=== PATIENT | female | born 1940 | race American Indian/Alaskan Native ===

== ENCOUNTER 2018-02-18 09:44 | Outpatient (CLI) | payer MEDICARE ==
--- NOTE | 2018-02-18 13:16 | Mammography Report ---
Bilateral mammogram: Compared to 12/28/14. CAD study utilized. Findings: Predominance adipose tissue bilaterally. No mass or microcalcification. Focal asymmetry measuring 4 mm in diameter the fat in the posterior right breast. Normal axilla. Impression: Focal asymmetry right breast. Recommend spot compression and if necessary sonographic examination. BI-RADS CATEGORY: 0 = Needs additional imaging evaluation ACR BI-RADS MAMMOGRAPHIC CODES: 0 = Needs additional imaging evaluation; 1 = Negative; 2 = Benign; 3 = Probably benign; 4 = Suspicious; 5 = Malignant; 6 = Known biopsy-proven malignancy COMMENT: 1. Dense breast tissue, i.e., adenosis, fibrocystic changes, etc., may obscure an underlying neoplasm. 2. Approximately 10% of cancers are not detected with mammography. 3. A negative mammography report should not delay biopsy if a clinically suspicious mass is present. COMMENT: Patient follow-up letters are generated in [employer].
== END 2018-02-18 09:45 | disposition home or self-care (01) ==
LOC: MAMMO 09:44
PROVIDERS: ATTEND Internal Medicine
DX: Z12.31 Encounter for screening mammogram for malignant neoplasm of breast (principal); E11.65 Type 2 diabetes mellitus with hyperglycemia; I10 Essential (primary) hypertension; M19.90 Unspecified osteoarthritis, unspecified site
CPT/HCPCS: 77067

== ENCOUNTER 2020-03-21 12:12 | Emergency (ER) | payer MEDICARE ==
[2020-03-21] MEDS ORDERED: diphenhydrAMINE 25 MG CAP PO ONE (14:04)
[2020-03-21] MEDS ORDERED: FAMOTIDINE 20 MG TAB PO ONE (14:04)
[2020-03-21] MEDS ORDERED: dexAMETHasone 20 MG/5 ML VIAL IM ONE (14:04)
--- NOTE | 2020-03-21 14:16 | Emergency Department Report ---
ED General Adult HPI - General Chief complaint: Skin/Abscess/Foreign Body Stated complaint: EYE PAIN/LIP PAIN Time Seen by Provider: 03/21/20 13:57 Source: patient Mode of arrival: Ambulatory Limitations: No Limitations - History of Present Illness Initial comments: Patient is a 79-year-old female presents emergency room with complaints of swelling underneath the eyes began yesterday. She states yesterday when she woke up she noticed swelling to the face which improved. But she states that she still continues to have a small amount of swelling underneath the eyes. She denies any new soaps, detergents, lotions, medications, foods, anything new that she can think of. She denies any known allergies. She denies any rash or itching. She denies any vision changes, eye drainage, nausea, vomiting, diarrhea, fever, SOB, difficulty swallowing, sensation of throat closing. Has a past medical history of DM, HTN, HLD. No allergies to medications. - Related Data Previous Rx's Medication Instructions Recorded Last Taken Type Aspirin 325 mg PO QDAY #30 tablet 07/12/14 Unknown Rx Atorvastatin [Lipitor] 40 mg PO QHS #30 tablet 07/12/14 Unknown Rx Famotidine [Pepcid] 20 mg PO BID #60 07/12/14 06/26/14 09:00 Rx Insulin Detemir (Nf) [Levemir 24 units SQ HS #1 ml 07/12/14 Unknown Rx Flextouch (Nf)] NIFEdipine [NIFEdipine ER] 90 mg PO QDAY #30 tab.er.24 07/12/14 Unknown Rx carvediloL [Coreg] 25 mg PO Q12HR #60 tablet 07/12/14 Unknown Rx lisinopriL [Lisinopril] 40 mg PO QDAY #30 tablet 07/12/14 Unknown Rx Famotidine [Pepcid] 40 mg PO QHS #10 tablet 03/21/20 Unknown Rx Prednisone [predniSONE 10 mg 10 mg PO .TAPER #1 tab.ds.pk 03/21/20 Unknown Rx (6-Day Pack, 21 Tabs)] diphenhydrAMINE [Benadryl CAP] 50 mg PO Q8HR PRN #14 capsule 03/21/20 Unknown Rx Allergies Allergy/AdvReac Type Severity Reaction Status Date / Time No Known Allergies Allergy Unverified 06/26/14 20:44 ED Review of Systems ROS: Stated complaint: EYE PAIN/LIP PAIN Other details as noted in HPI Comment: All other systems reviewed and negative ED Past Medical Hx - Past Medical History Previous Medical History?: Yes Hx Hypertension: Yes Hx CVA: Yes Hx Congestive Heart Failure: No Hx Diabetes: Yes Hx Arthritis: Yes Hx COPD: No - Surgical History Hx Open Heart Surgery: No Hx Pacemaker: No - Social History Smoking Status: Never Smoker Substance Use Type: None - Medications Home Medications: Home Medications Medication Instructions Recorded Confirmed Last Taken Type Aspirin 325 mg PO QDAY #30 tablet 07/12/14 Unknown Rx Atorvastatin [Lipitor] 40 mg PO QHS #30 tablet 07/12/14 Unknown Rx Famotidine [Pepcid] 20 mg PO BID #60 07/12/14 06/26/14 06/26/14 09:00 Rx Insulin Detemir (Nf) [Levemir 24 units SQ HS #1 ml 07/12/14 Unknown Rx Flextouch (Nf)] NIFEdipine [NIFEdipine ER] 90 mg PO QDAY #30 tab.er.24 07/12/14 Unknown Rx carvediloL [Coreg] 25 mg PO Q12HR #60 tablet 07/12/14 Unknown Rx lisinopriL [Lisinopril] 40 mg PO QDAY #30 tablet 07/12/14 Unknown Rx Famotidine [Pepcid] 40 mg PO QHS #10 tablet 03/21/20 Unknown Rx Prednisone [predniSONE 10 mg 10 mg PO .TAPER #1 tab.ds.pk 03/21/20 Unknown Rx (6-Day Pack, 21 Tabs)] diphenhydrAMINE [Benadryl CAP] 50 mg PO Q8HR PRN #14 capsule 03/21/20 Unknown Rx ED Physical Exam - General Limitations: No Limitations General appearance: alert, in no apparent distress - Eye Eye exam: Present: normal appearance, PERRL, EOMI, other (mild edema present underneath the eyelid bilaterally, no erythema, no increased warmth, no conjunctival injection, no drainage ) - ENT ENT exam: Present: normal orophraynx, mucous membranes moist, other (no shanon oedema, uvula is midline, no uvular edema or deviation, no tongue edema) - Respiratory Respiratory exam: Present: normal lung sounds bilaterally. Absent: respiratory distress, wheezes, rales, rhonchi, stridor, chest wall tenderness, accessory muscle use, decreased breath sounds, prolonged expiratory - Cardiovascular Cardiovascular Exam: Present: regular rate, normal rhythm, normal heart sounds. Absent: systolic murmur, diastolic murmur, rubs, gallop - Neurological Exam Neurological exam: Present: alert, oriented X3 - Psychiatric Psychiatric exam: Present: normal affect, normal mood - Skin Skin exam: Present: warm, dry. Absent: rash ED Course Vital Signs 03/21/20 03/21/20 03/21/20 12:26 15:08 15:11 Temperature 99.3 F 98.2 F 98.2 F Pulse Rate 90 82 82 Respiratory 18 14 14 Rate Blood Pressure 155/79 142/75 Blood Pressure 142/75 [Right] O2 Sat by Pulse 98 99 99 Oximetry ED Medical Decision Making - Medical Decision Making Patient is a 79-year-old female presents emergency room with complaints of swelling underneath the eyes began yesterday. She states yesterday when she woke up she noticed swelling to the face which improved. But she states that she still continues to have a small amount of swelling underneath the eyes. She denies any new soaps, detergents, lotions, medications, foods, anything new that she can think of. She denies any known allergies. She denies any rash or itching. She denies any vision changes, eye drainage, nausea, vomiting, diarrhea, fever, SOB, difficulty swallowing, sensation of throat closing. Has a past medical history of DM, HTN, HLD. No allergies to medications. Vitals are normal. On exam: mild edema present underneath the eyelid bilaterally, no erythema, no increased warmth, no conjunctival injection, no drainage, no angioedema, uvula is midline, no uvular edema or deviation, no tongue edema, no stridor, no respiratory distress. No signs of infection. Appears to have mild allergic reaction with swelling underneath her eyes, otherwise no signs of angioedema, no signs of anaphylaxis, no signs of rash. Patient given dexamethasone, prednisone, Pepcid while in the emergency department and was observed and had no further complications. She states that she is feeling much better and ready to go home. Patient given prescription for prednisone, Pepcid, Benadryl. Advised patient to please take medication as prescribed. Increase your water intake. Follow-up with a primary care doctor. The steroids may increase your blood sugar, please monitor your blood sugar. Return to emergency room for any new or worsening symptoms. Critical care attestation.: If time is entered above; I have spent that time in minutes in the direct care of this critically ill patient, excluding procedure time. ED Disposition Clinical Impression: Eye swelling, bilateral Disposition: DC-01 TO HOME OR SELFCARE Is pt being admited?: No Does the pt Need Aspirin: No Condition: Stable Instructions: Angioedema, [id number] Additional Instructions: Please take medication as prescribed. Benadryl may cause drowsiness, please be careful while taking. Follow-up with your primary care doctor in the next couple of days for reexamination. Return to emergency room immediately for any new or worsening symptoms including but not limited to increasing facial swelling, sensation of throat closing, shortness of breath, etc. Prescriptions: Famotidine [Pepcid] 40 mg PO QHS #10 tablet diphenhydrAMINE [Benadryl CAP] 50 mg PO Q8HR PRN #14 capsule PRN Reason: swelling/rash Prednisone [predniSONE 10 mg (6-Day Pack, 21 Tabs)] 10 mg PO .TAPER #1 tab.ds.pk Referrals: PRIMARY CARE, [Primary Care Provider] - 2-3 Days Time of Disposition: 16:14 Print Language: EQUATORIAL GUINEAN
[2020-03-21 15:12] VITALS: BP 142/75
== END 2020-03-21 16:50 | disposition home or self-care (01) ==
LOC: ED 12:12
DX: H92.03 Otalgia, bilateral (principal); I10 Essential (primary) hypertension; E11.9 Type 2 diabetes mellitus without complications; M19.90 Unspecified osteoarthritis, unspecified site; Z79.82 Long term (current) use of aspirin; Z86.73 Personal history of transient ischemic attack (TIA), and cerebral infarction without residual deficits; Z79.899 Other long term (current) drug therapy
CPT/HCPCS: 96372; 99282; J1100

== ENCOUNTER 2021-04-11 13:21 | Observation (INO) | payer MEDICARE ==
[2021-04-11] MEDS ORDERED: hydrALAZINE 20 MG/1 ML INJ IV ONE (13:44)
[2021-04-11] MEDS ORDERED: FAMOTIDINE 20 MG/2 ML INJ IV ONE (13:44)
[2021-04-11] MEDS ORDERED: dexAMETHasone 20 MG/5 ML VIAL IV ONE (13:44)
[2021-04-11] MEDS ORDERED: diphenhydrAMINE 50 MG/ML VIAL IV ONE (13:44)
--- NOTE | 2021-04-11 13:55 | Emergency Department Report ---
ED Allergic Reaction HPI - General Chief complaint: Allergic Reaction Stated complaint: LIP SWELLING Time Seen by Provider: 04/11/21 13:39 Source: patient Mode of arrival: Ambulatory Limitations: No Limitations - History of Present Illness Initial Comments: Patient is a 81-year-old female presents emergency room complaints of lip swelling that began last night. She denies any known allergies. She denies any new foods, lotions, detergents, medications, antibiotics. Patient states that she does take lisinopril for her blood pressure and states that she has been on it for a long time. She did not take any blood pressure medication this morning. She denies any tongue swelling, difficulty swallowing, difficulty breathing, rash, itching. She denies ever having this in the past. Patient denies any medication allergies. - Related Data Previous Rx's Medication Instructions Recorded Last Taken Type Aspirin 325 mg PO QDAY #30 tablet 07/12/14 Unknown Rx Atorvastatin [Lipitor] 40 mg PO QHS #30 tablet 07/12/14 Unknown Rx Famotidine [Pepcid] 20 mg PO BID #60 07/12/14 06/26/14 09:00 Rx Insulin Detemir (Nf) [Levemir 24 units SQ HS #1 ml 07/12/14 Unknown Rx Flextouch (Nf)] NIFEdipine [NIFEdipine ER] 90 mg PO QDAY #30 tab.er.24 07/12/14 Unknown Rx carvediloL [Coreg] 25 mg PO Q12HR #60 tablet 07/12/14 Unknown Rx lisinopriL [Lisinopril] 40 mg PO QDAY #30 tablet 07/12/14 Unknown Rx Famotidine [Pepcid] 40 mg PO QHS #10 tablet 03/21/20 Unknown Rx Prednisone [predniSONE 10 mg 10 mg PO .TAPER #1 tab.ds.pk 03/21/20 Unknown Rx (6-Day Pack, 21 Tabs)] diphenhydrAMINE [Benadryl CAP] 50 mg PO Q8HR PRN #14 capsule 03/21/20 Unknown Rx Allergies Allergy/AdvReac Type Severity Reaction Status Date / Time No Known Allergies Allergy Verified 04/11/21 13:22 ED Review of Systems ROS: Stated complaint: LIP SWELLING Other details as noted in HPI Comment: All other systems reviewed and negative ED Past Medical Hx - Past Medical History Hx Hypertension: Yes Hx CVA: Yes Hx Congestive Heart Failure: No Hx Diabetes: Yes Hx Arthritis: Yes Hx COPD: No - Surgical History Hx Open Heart Surgery: No Hx Pacemaker: No - Social History Smoking Status: Never Smoker Substance Use Type: None - Medications Home Medications: Home Medications Medication Instructions Recorded Confirmed Last Taken Type Aspirin 325 mg PO QDAY #30 tablet 07/12/14 Unknown Rx Atorvastatin [Lipitor] 40 mg PO QHS #30 tablet 07/12/14 Unknown Rx Famotidine [Pepcid] 20 mg PO BID #60 07/12/14 06/26/14 06/26/14 09:00 Rx Insulin Detemir (Nf) [Levemir 24 units SQ HS #1 ml 07/12/14 Unknown Rx Flextouch (Nf)] NIFEdipine [NIFEdipine ER] 90 mg PO QDAY #30 tab.er.24 07/12/14 Unknown Rx carvediloL [Coreg] 25 mg PO Q12HR #60 tablet 07/12/14 Unknown Rx lisinopriL [Lisinopril] 40 mg PO QDAY #30 tablet 07/12/14 Unknown Rx Famotidine [Pepcid] 40 mg PO QHS #10 tablet 03/21/20 Unknown Rx Prednisone [predniSONE 10 mg 10 mg PO .TAPER #1 tab.ds.pk 03/21/20 Unknown Rx (6-Day Pack, 21 Tabs)] diphenhydrAMINE [Benadryl CAP] 50 mg PO Q8HR PRN #14 capsule 03/21/20 Unknown Rx ED Physical Exam - General Limitations: No Limitations General appearance: alert, in no apparent distress - Head Head exam: Present: atraumatic, normocephalic - Eye Eye exam: Present: normal appearance - ENT ENT exam: Present: mucous membranes moist, other (upper and lower lip edema, no tongue edema, uvula is midline, no uvular edema or deviation, no muffled voice, no trismus, airway is intact) - Respiratory Respiratory exam: Present: normal lung sounds bilaterally. Absent: respiratory distress, wheezes, rales, rhonchi, stridor, chest wall tenderness, accessory muscle use, decreased breath sounds, prolonged expiratory - Cardiovascular Cardiovascular Exam: Present: regular rate, normal rhythm, normal heart sounds. Absent: systolic murmur, diastolic murmur, rubs, gallop - Neurological Exam Neurological exam: Present: alert, oriented X3 - Psychiatric Psychiatric exam: Present: normal affect, normal mood - Skin Skin exam: Present: warm, dry, intact ED Course Vital Signs 04/11/21 04/11/21 04/11/21 13:35 14:31 17:14 Temperature 98.4 F Pulse Rate 88 82 Respiratory 16 19 Rate Blood Pressure 207/123 177/106 [Right] O2 Sat by Pulse 99 97 98 Oximetry 04/11/21 19:27 Temperature Pulse Rate 108 H Respiratory 18 Rate Blood Pressure 171/80 [Right] O2 Sat by Pulse 98 Oximetry - Consultations Consultation #1: 04/11/21 16:[address] Escobar, ER attending who recommends observation admission 04/11/21 16:[address] Wang, hospitalist who will evaluate patient in ER 04/11/21 17:[address] Wang, hospitalist who accepted resume care of patient, will admit to hospitalist service ED Medical Decision Making - Lab Data Result diagrams: 04/11/21 17:42 04/11/21 17:42 - Medical Decision Making Patient is a 81-year-old female presents emergency room complaints of lip swelling that began last night. She denies any known allergies. She denies any new foods, lotions, detergents, medications, antibiotics. Patient states that she does take lisinopril for her blood pressure and states that she has been on it for a long time. She did not take any blood pressure medication this morning. She denies any tongue swelling, difficulty swallowing, difficulty breathing, rash, itching. She denies ever having this in the past. Patient denies any medication allergies. Vitals with significantly elevated blood pressure, given IV hydralazine with improvement of blood pressure. On exam upper and lower lip edema, no tongue edema, uvula is midline, no uvular edema or deviation, no muffled voice, no trismus, airway is intact. Patient given IV Benadryl, Pepcid, dexamethasone. Patient was reexamined multiple times and she is resting comfortably with no further complications. Discussed case with Dr. Escobar, ER attending who recommended admission. Discussed case with Dr. Wang, hospitalist who will accept and resume care of patient, will admit to hospital service. Discussed all findings with patient who is agreeable with admission. Critical care attestation.: If time is entered above; I have spent that time in minutes in the direct care of this critically ill patient, excluding procedure time. ED Disposition Clinical Impression: Angioedema Qualifiers: Encounter type: initial encounter Qualified Code(s): T78.3XXA - Angioneurotic edema, initial encounter HTN (hypertension) Qualifiers: Hypertension type: unspecified Qualified Code(s): I10 - Essential (primary) hypertension Disposition: 02 [facility] Is pt being admited?: Yes Does the pt Need Aspirin: No Condition: Stable Time of Disposition: 17:24
[2021-04-11] MEDS ORDERED: ONDANSETRON 4 MG/2 ML INJ IV PRN (17:26)
[2021-04-11] MEDS ORDERED: ACETAMINOPHEN 325 MG TAB PO PRN (17:26)
[2021-04-11] MEDS ORDERED: HYDROmorphone 1 MG/1 ML INJ IV PRN (17:26)
[2021-04-11] MEDS ORDERED: oxyCODONE /ACETAMINOPHEN 5-325MG TAB PO PRN (17:26)
[2021-04-11] MEDS ORDERED: SODIUM CHLORIDE 0.9% 1000 ML 1,000 ML IV SCH (17:30)
[2021-04-11] MEDS ORDERED: NIFEdipine XL 30 MG TAB PO SCH (18:00)
[2021-04-11 18:02] LABS: Basophils # (Auto) 0.1 K/mm3 (0.0-0.1); Basophils % (Auto) 0.7 % (0.0-1.8); Eosinophils % (Auto) 0.3 % (0.0-4.3); Lymphocytes # (Auto) 0.9 K/mm3 (1.2-5.4); Lymphocytes % (Auto) 9.8 % (13.4-35.0); Mean Corpuscular HGB Conc 31 % (30-34); Mean Corpuscular Volume 86 fl (79-97); Monocytes # (Auto) 0.1 K/mm3 (0.0-0.8); Monocytes % (Auto) 1.1 % (0.0-7.3); Platelet Count 324 K/mm3 (140-440); Red Blood Count 5.55 M/mm3 (3.65-5.03); Red Cell Distribution Width 14.3 % (13.2-15.2)
[2021-04-11 18:14] LABS: Hematocrit 47.7 % (30.3-42.9); Hemoglobin 14.9 gm/dl (10.1-14.3)
[2021-04-11 18:23] LABS: Alanine Aminotransferase 11 units/L (7-56); Albumin 4.2 g/dL (3.9-5); Blood Urea Nitrogen 13 mg/dL (7-17); Calcium 9.7 mg/dL (8.4-10.2); Hemolysis Index 13
[2021-04-11] MEDS: hydrALAZINE 25 MG TAB PO SCH ×2 (18:24→23:11)
[2021-04-11 18:27] LABS: BUN/Creatinine Ratio 19
[2021-04-11] MEDS ORDERED: carvediloL 12.5 MG TAB PO SCH (22:00)
[2021-04-11] MEDS: methylPREDNISolone Sod Succinate 125 MG/2 ML INJ IV SCH (23:12)
[2021-04-11] MEDS: HEPARIN 5,000 UNIT/1 ML VIAL SUB-Q SCH (23:18)
[2021-04-12] MEDS: FAMOTIDINE 20 MG/2 ML INJ IV SCH ×2 (02:01→11:45)
[2021-04-12 05:30] LABS: Basophils % (Auto) 0.5 % (0.0-1.8); Eosinophils % (Auto) 0.1 % (0.0-4.3); Hematocrit 43.6 % (30.3-42.9); Hemoglobin 13.7 gm/dl (10.1-14.3); Lymphocytes # (Auto) 0.8 K/mm3 (1.2-5.4); Lymphocytes % (Auto) 10.1 % (13.4-35.0); Mean Corpuscular HGB Conc 31 % (30-34); Mean Corpuscular Volume 86 fl (79-97); Monocytes # (Auto) 0.1 K/mm3 (0.0-0.8); Monocytes % (Auto) 0.8 % (0.0-7.3); Platelet Count 321 K/mm3 (140-440); Red Blood Count 5.06 M/mm3 (3.65-5.03); Red Cell Distribution Width 14.5 % (13.2-15.2)
[2021-04-12 05:40] LABS: Blood Urea Nitrogen 16 mg/dL (7-17); Calcium 9.4 mg/dL (8.4-10.2); Hemolysis Index 4
[2021-04-12 06:00] LABS: BUN/Creatinine Ratio 23
[2021-04-12] MEDS: hydrALAZINE 25 MG TAB PO SCH (06:02)
[2021-04-12] MEDS: methylPREDNISolone Sod Succinate 125 MG/2 ML INJ IV SCH (06:02)
[2021-04-12] MEDS ORDERED: diphenhydrAMINE 50 MG CAP PO PRN (06:42)
--- NOTE | 2021-04-12 06:49 | History and Physical Report ---
History of Present Illness Date of examination: 04/11/21 Date of admission: 04/11/21 17:26 Chief complaint: Swelling of the lips since last night History of present illness: 81-year-old female with history of hypertension and insulin-dependent diabetes comes in for swelling of the lips since last night. No shortness of breath. No tongue swelling. Patient is on lisinopril for blood pressure. She has been on lisinopril for a long time. There is a first episode of swelling of the lips. No respiratory compromise. - Past Medical History --Hypertension: Yes --CVA: Yes --Diabetes: Yes --Arthritis: Yes - Surgical History --No - Social History =--Never Smoker --Substance Use Type: None - Family history --Hypertension Review of Systems ROS: Stated complaint: LIP SWELLING Other details as noted in HPI Comment: All other systems reviewed and negative Medications and Allergies Allergies Allergy/AdvReac Type Severity Reaction Status Date / Time No Known Allergies Allergy Verified 04/11/21 13:22 Home Medications Medication Instructions Recorded Confirmed Last Taken Type Aspirin 325 mg PO QDAY #30 tablet 07/12/14 Unknown Rx Atorvastatin [Lipitor] 40 mg PO QHS #30 tablet 07/12/14 Unknown Rx Famotidine [Pepcid] 20 mg PO BID #60 07/12/14 06/26/14 06/26/14 09:00 Rx Insulin Detemir (Nf) [Levemir 24 units SQ HS #1 ml 07/12/14 Unknown Rx Flextouch (Nf)] NIFEdipine [NIFEdipine ER] 90 mg PO QDAY #30 tab.er.24 07/12/14 Unknown Rx carvediloL [Coreg] 25 mg PO Q12HR #60 tablet 07/12/14 Unknown Rx lisinopriL [Lisinopril] 40 mg PO QDAY #30 tablet 07/12/14 Unknown Rx Famotidine [Pepcid] 40 mg PO QHS #10 tablet 03/21/20 Unknown Rx Prednisone [predniSONE 10 mg 10 mg PO .TAPER #1 tab.ds.pk 03/21/20 Unknown Rx (6-Day Pack, 21 Tabs)] diphenhydrAMINE [Benadryl CAP] 50 mg PO Q8HR PRN #14 capsule 03/21/20 Unknown Rx Active Meds: Active Medications Acetaminophen (Acetaminophen 325 Mg Tab) 650 mg PO Q4H PRN PRN Reason: Pain MILD(1-3)/Fever >100.5/BERMUDEZ Atorvastatin Calcium (Atorvastatin 40 Mg Tab) 40 mg PO QHS [facility] Carvedilol (Carvedilol 12.5 Mg Tab) 12.5 mg PO BID [facility] Last Admin: 04/11/21 23:11 Dose: 12.5 mg Documented by: Carvedilol (Carvedilol 12.5 Mg Tab) 25 mg PO Q12HR [facility] Diphenhydramine HCl (Diphenhydramine 50 Mg Cap) 50 mg PO Q8HR PRN PRN Reason: swelling/rash Famotidine (Famotidine 20 Mg/2 Ml Inj) 20 mg IV BID [facility] Last Admin: 04/12/21 02:01 Dose: 20 mg Documented by: Heparin Sodium (Porcine) (Heparin 5,000 Unit/1 Ml Vial) 5,000 unit SUB-Q Q12HR [facility] Last Admin: 04/11/21 23:18 Dose: 5,000 unit Documented by: Hydralazine HCl (Hydralazine 25 Mg Tab) 50 mg PO Q8HR [facility] Last Admin: 04/12/21 06:02 Dose: 50 mg Documented by: Hydromorphone HCl (Hydromorphone 1 Mg/1 Ml Inj) 0.5 mg IV Q3H PRN PRN Reason: Pain , Severe (7-10) Sodium Chloride (Nacl 0.9% 1000 Ml) 1,000 mls @ 75 mls/hr IV DIRECT [facility] Insulin Human Lispro (Insulin Lispro 100 Unit/Ml) 0 unit SUB-Q [facility]; Protocol Methylprednisolone Sodium Succinate (Methylprednisolone Sod Succinate 125 Mg/2 Ml Inj) 60 mg IV Q8HR [facility] Last Admin: 04/12/21 06:02 Dose: 60 mg Documented by: Miscellaneous Medication (Insulin Detemir) 24 units SQ HS [facility] Nifedipine (Nifedipine Xl 30 Mg Tab) 30 mg PO QDAY [facility] Last Admin: 04/11/21 19:25 Dose: 30 mg Documented by: Nifedipine (Nifedipine Xl 90 Mg Tab) 90 mg PO QDAY [facility] Ondansetron HCl (Ondansetron 4 Mg/2 Ml Inj) 4 mg IV Q8H PRN PRN Reason: Nausea And Vomiting Oxycodone/Acetaminophen (Oxycodone /Acetaminophen 5-325mg Tab) 1 tab PO Q6H PRN PRN Reason: Pain, Moderate (4-6) Sodium Chloride (Sodium Chloride 0.9% 10 Ml Flush Syringe) 10 ml IV BID [facility] Last Admin: 04/11/21 23:14 Dose: 10 ml Documented by: Sodium Chloride (Sodium Chloride 0.9% 10 Ml Flush Syringe) 10 ml IV PRN PRN PRN Reason: LINE FLUSH Exam - Constitutional Vitals: Temp Pulse Resp BP Pulse Ox 98.4 F 92 H 18 163/70 97 04/12/21 06:40 04/12/21 06:40 04/12/21 06:40 04/12/21 06:40 04/12/21 06:40 General appearance: Present: no acute distress, well-nourished - EENT Eyes: Present: PERRL ENT: hearing intact, clear oral mucosa, other (Both upper and lower lips are swollen, tongue is not swollen) - Neck Neck: Present: supple, normal ROM - Respiratory Respiratory effort: normal Respiratory: bilateral: CTA - Cardiovascular Heart rate: 72 Rhythm: regular Heart Sounds: Present: S1 & S2. Absent: rub, click - Extremities Extremities: pulses symmetrical, No edema Peripheral Pulses: within normal limits - Abdominal General gastrointestinal: Present: soft, non-tender, non-distended, normal bowel sounds Female genitourinary: Present: normal - Integumentary Integumentary: Present: clear, warm, dry - Musculoskeletal Musculoskeletal: gait normal, strength equal bilaterally - Psychiatric Psychiatric: appropriate mood/affect, intact judgment & insight - Neurologic Neurologic: CNII-XII intact, moves all extremities HEART Score - HEART Score History: Slightly suspicious EKG: Non-specific Age: > 65 Risk factors: 1-2 risk factors Troponin: < normal limit HEART Score: 4 - Critical Actions Critical Actions: 0-3 pts:0.9-1.7%risk of adverse cardiac event.Candidate for discharge Results - Labs CBC & Chem 7: 04/12/21 04:12 04/12/21 04:12 Labs: Laboratory Last Values WBC 8.3 K/mm3 (4.5-11.0) 04/12/21 04:12 RBC 5.06 M/mm3 (3.65-5.03) H 04/12/21 04:12 Hgb 13.7 gm/dl (10.1-14.3) 04/12/21 04:12 Hct 43.6 % (30.3-42.9) H 04/12/21 04:12 MCV 86 fl (79-97) 04/12/21 04:12 MCH 27 pg (28-32) L 04/12/21 04:12 MCHC 31 % (30-34) 04/12/21 04:12 RDW 14.5 % (13.2-15.2) 04/12/21 04:12 Plt Count 321 K/mm3 (140-440) 04/12/21 04:12 Lymph % (Auto) 10.1 % (13.4-35.0) L 04/12/21 04:12 [place] % (Auto) 0.8 % (0.0-7.3) 04/12/21 04:12 Eos % (Auto) 0.1 % (0.0-4.3) 04/12/21 04:12 Baso % (Auto) 0.5 % (0.0-1.8) 04/12/21 04:12 Lymph # (Auto) 0.8 K/mm3 (1.2-5.4) L 04/12/21 04:12 [place] # (Auto) 0.1 K/mm3 (0.0-0.8) 04/12/21 04:12 Eos # (Auto) 0.0 K/mm3 (0.0-0.4) 04/12/21 04:12 Baso # (Auto) 0.0 K/mm3 (0.0-0.1) 04/12/21 04:12 Seg Neutrophils % 88.5 % (40.0-70.0) H 04/12/21 04:12 Seg Neutrophils # 7.4 K/mm3 (1.8-7.7) 04/12/21 04:12 Sodium 137 mmol/L (137-145) 04/12/21 04:12 Potassium 4.2 mmol/L (3.6-5.0) 04/12/21 04:12 Chloride 100.1 mmol/L (98-107) 04/12/21 04:12 Carbon Dioxide 22 mmol/L (22-30) 04/12/21 04:12 Anion Gap 19 mmol/L 04/12/21 04:12 BUN 16 mg/dL (7-17) 04/12/21 04:12 Creatinine 0.7 mg/dL (0.6-1.2) 04/12/21 04:12 Estimated GFR > 60 ml/min 04/12/21 04:12 BUN/Creatinine Ratio 23 % 04/12/21 04:12 Glucose 205 mg/dL (65-100) H 04/12/21 04:12 Calcium 9.4 mg/dL (8.4-10.2) 04/12/21 04:12 Total Bilirubin 0.60 mg/dL (0.1-1.2) 04/11/21 17:42 AST 13 units/L (5-40) 04/11/21 17:42 ALT 11 units/L (7-56) 04/11/21 17:42 Alkaline Phosphatase 112 units/L (35-129) 04/11/21 17:42 Total Protein 7.9 g/dL (6.3-8.2) 04/11/21 17:42 Albumin 4.2 g/dL (3.9-5) 04/11/21 17:42 Albumin/Globulin Ratio 1.1 % 04/11/21 17:42 Short CBC 04/11/21 04/12/21 Range/Units 17:42 04:12 WBC 9.2 8.3 (4.5-11.0) K/mm3 Hgb 14.9 H 13.7 (10.1-14.3) gm/dl Hct 47.7 H 43.6 H (30.3-42.9) % Plt Count 324 321 (140-440) K/mm3 BMP 04/11/21 04/12/21 17:42 04:12 Sodium 141 137 Potassium 4.5 4.2 Chloride 101.6 100.1 Carbon Dioxide 23 22 BUN 13 16 Creatinine 0.7 0.7 Glucose 205 H 205 H Calcium 9.7 9.4 Liver Function 04/11/21 Range/Units 17:42 Total Bilirubin 0.60 (0.1-1.2) mg/dL AST 13 (5-40) units/L ALT 11 (7-56) units/L Alkaline Phosphatase 112 (35-129) units/L Albumin 4.2 (3.9-5) g/dL Assessment and Plan Advance Directives: Yes (Full code) VTE prophylaxis?: Chemical Plan of care discussed with patient/family: Yes - Patient Problems (1) Angioedema Current Visit: Yes Status: Acute Qualifiers: Encounter type: initial encounter Qualified Code(s): T78.3XXA - Angioneurotic edema, initial encounter Plan to address problem: Both the lips are swollen Patient being admitted for observation Lisinopril to be stopped Patient informed that she cannot take any KASSIE inhibitor is from now on (2) HTN (hypertension) Current Visit: Yes Status: Chronic Qualifiers: Hypertension type: unspecified Qualified Code(s): I10 - Essential (primary) hypertension Plan to address problem: Continue antihypertensives without KASSIE inhibitor's Hydralazine 50 mg every 8 if necessary (3) Uncontrolled diabetes mellitus Current Visit: No Status: Chronic Qualifiers: Diabetes mellitus type: type 2 Plan to address problem: Patient to continue home insulin and Accu-Cheks AC at bedtime and coverage Check hemoglobin A1c (4) DVT prophylaxis Current Visit: No Status: Acute Plan to address problem: On anticoagulation GI prophylaxis
[2021-04-12] MEDS: INSULIN LISPRO 100 UNIT/ML SUB-Q SCH ×2 (09:48→11:46)
[2021-04-12] MEDS ORDERED: carvediloL 25 MG TAB PO SCH (10:00)
[2021-04-12] MEDS ORDERED: NIFEdipine XL 90 MG TAB PO SCH (10:00)
[2021-04-12] MEDS: HEPARIN 5,000 UNIT/1 ML VIAL SUB-Q SCH (11:46)
--- NOTE | 2021-04-12 17:01 | Discharge Summary ---
Providers - Providers Date of Admission: 04/11/21 17:26 Attending physician: ALEX VICENTE MD Primary care physician: CASINO FLOORPERSON Hospitalization Condition: Stable Hospital course: 81-year-old female with history of hypertension and insulin-dependent diabetes comes in for swelling of upper lip since last night. No shortness of breath. No tongue swelling. No swallowing problem. Patient is on lisinopril for blood pressure for a long time. There is a first episode of swelling of the lips. No respiratory compromise. Patient was given Solu-Medrol and Pepcid. Upper lip swelling mostly resolved by the following day. Patient was asymptomatic and discharged to home on Medrol Dosepak and Pepcid, to be followed with PCP in 3 to 5 days. She remained hemodynamically stable. Patient was instructed not daily resume lisinopril. (1) Angioedema of lips Both the lips are swollen, resolved with the IV Solu-Medrol and Pepcid. Lisinopril to be stopped Patient informed that she cannot take any KASSIE inhibitor from now on (2) HTN (hypertension) Continue antihypertensives without KASSIE inhibitor's Hydralazine 50 mg every 8 if necessary (3) diabetes mellitus, A1c 7.3 Patient to continue home insulin and Accu-Cheks AC at bedtime and coverage Disposition: 01 HOME / SELF CARE / HOMELESS Final Discharge Diagnosis (Prints w/discharge instructions): Angioedema of lips, suspected etiology allergic to lisinopril. Diabetes mellitus. Hypertension Core Measure Documentation - Palliative Care Palliative Care/ Comfort Measures: Not Applicable - Core Measures Any of the following diagnoses?: none Exam - Constitutional Vitals: Temp Pulse Resp BP Pulse Ox 98.4 F 92 H 17 174/81 99 04/12/21 06:40 04/12/21 11:45 04/12/21 11:00 04/12/21 11:45 04/12/21 11:00 General appearance: Present: no acute distress - EENT Eyes: Present: PERRL, EOM intact ENT: other (No facial edema, upper lip swelling resolved, oropharynx unremarkable.) - Neck Neck: Present: supple - Respiratory Respiratory effort: normal Respiratory: bilateral: CTA - Cardiovascular Rhythm: regular - Extremities Extremities: No edema - Abdominal General gastrointestinal: Present: soft, non-tender - Integumentary Integumentary: Absent: rash - Musculoskeletal Musculoskeletal: strength equal bilaterally - Psychiatric Psychiatric: appropriate mood/affect - Neurologic Neurologic: moves all extremities Plan Activity: advance as tolerated Diet: diabetic (1800 priscilla) Follow up with: PRIMARY CARE,MD [Primary Care Provider] - 3-5 Days Prescriptions: Prednisone [predniSONE 5 mg (6-Day Pack, 21 Tabs)] 5 mg PO .TAPER #1 tab.ds.pk
[2021-04-12 17:56] VITALS: BP 169/72
[2021-04-12] MEDS ORDERED: INSULIN GLARGINE 100 UNITS/ML SUB-Q SCH (22:00)
[2021-04-12] MEDS ORDERED: INSULIN DETEMIR 100 UNIT/ML SQ SCH (22:00)
== END 2021-04-12 17:50 | disposition home or self-care (01) ==
LOC: ED 13:21 → 3A 17:26
PROVIDERS: ADMIT Internal Medicine; ATTEND Internal Medicine
DX: I16.1 Hypertensive emergency (principal); T78.3XXA Angioneurotic edema, initial encounter; I10 Essential (primary) hypertension; E11.9 Type 2 diabetes mellitus without complications; M19.90 Unspecified osteoarthritis, unspecified site; Z86.73 Personal history of transient ischemic attack (TIA), and cerebral infarction without residual deficits; Z79.4 Long term (current) use of insulin; Z79.82 Long term (current) use of aspirin; Z79.899 Other long term (current) drug therapy; Z98.890 Other specified postprocedural states
CPT/HCPCS: 36415; 80048; 80053; 82962; 83036; 85025; 96372; 96374; 96375; 96376; 99284; G0378; J0360; J1100; J1200; J1644; J2930; J3490; Q9967; J1815